=== PATIENT | female | born 1940 | race Caucasian/White ===

== ENCOUNTER → 2016-04-28 | Day surgery (SDC) | payer MEDICARE, OTHER ==
[~2016-04-28] MED LIST: BUPIVACAINE HCL PF 0.25% 30 ML VIAL ONE; KETOROLAC TROMETHAMINE 30 MG/ML (IVP) VIAL IV PUSH ONE; LACTATED RINGER'S 1000 ML INJ 1,000 ML ONE; MIDAZOLAM HCL 2 MG/2 ML VIAL ONE; ONDANSETRON HCL 4 MG/2 ML VIAL IV PUSH ONE; PROPOFOL 200 MG/20 ML AMP IV ONE; ceFAZolin 2 GM PREMIX 50 ML ONE
--- NOTE | 2016-04-28 20:00 | MP ---
cc: ELIJAH RUFFIN DPM DATE OF SURGERY: 04/28/2016. PREOPERATIVE DIAGNOSIS: Left foot bunion and second digit hammertoe with metatarsalgia. POSTOPERATIVE DIAGNOSIS: Left foot bunion and second digit hammertoe with metatarsalgia. OPERATIVE PROCEDURE PERFORMED: Left first metatarsal osteotomy with proximal phalanx osteotomy, double osteotomy second digit proximal interphalangeal joint fusion with second metatarsal osteotomies. SURGEON: Elijah Ruffin DPM SPECIMEN: None ESTIMATED BLOOD LOSS: Less than three mL. MATERIALS USED: x2 2.5 headless cannulated screws. x1 2.5 cannulated screw. x1 3.0 cannulated screw. These were all [employer]rol[employer] screws titanium [employer]. INJECTABLES: 30 mL of 0.25% Marcaine plain. COMPLICATIONS: None. ANESTHESIA: General with local. TOURNIQUET TIME: 77 minutes at a setting of 250 mmHg. PLAN OF ACTIVITY: Post-anesthesia care unit and then discharge home once stable per same day surgery criteria. JUSTIFICATION FOR THE PROCEDURE: 75-year-old female with worsening bunion pain, inability to wear shoe gear and ambulate without pain. She exhausted conservative options and failed. We opted to move forward with surgical intervention. No guarantees were given or implied regarding the outcome. DESCRIPTION OF THE PROCEDURE IN DETAIL: Under mild sedation, the patient was brought into the operating room and placed on the operating table in a supine position. Following the induction of LMA general anesthesia, local anesthesia was obtained about the forefoot utilizing a standard block fashion. The patient's foot was then scrubbed, prepped and draped in the usual aseptic fashion. The foot was elevated, exsanguinated and the previously placed mid-calf tourniquet was inflated to 215 mmHg. An incision was made over the dorsal aspect of the IPJ of the hallux along the dorsal aspect of the first MPJ through the mid shaft of the first metatarsal. Sharp and blunt dissection was carried down to the extensor hallucis longus tendon which was retracted medially and sharp and blunt dissection was carried down to the level of the conjoined tendon of the first MPJ which was severed freeing up lateral contractures. Next an L-shaped capsulotomy was performed freeing up any attachments to the dorsomedial eminence. This was then transected utilizing power instrumentation. There was noted to be good cartilage surface with minimal signs of arthritis. No obvious loose friable tissue noted. A McGlamry elevator was then introduced deep into the first MPJ freeing up all plantar contractures. Next an offset V osteotomy was performed displacing the capital fragment laterally 4 mm and fixating utilizing x2 [employer] screws. Next the prominent redundant bone was then transected. There still remained a distal deformity with hallux abductovalgus. At this time, a closing wedge José Miguel was performed of the proximal phalanx with the apex being proximal and the base of the triangle being distal medial. This then improved the contour of the proximal articular set angle and allowed for fixation with x2 headless screws. Absent bunion and a straight hallux with minimal hallux abductovalgus noted. The capsule was repaired utilizing Vicryl. . The skin was closed utilizing nylon. Next incision was made over the dorsal aspect of the second digit proximal interphalangeal joint, which was slightly curvilinear at the level of the second MPJ. Sharp and blunt dissection was carried down to the extensor digitorum longus tendon. An extensor tendon lengthening approach took place utilizing an incision of V tendon lengthening. Sharp and blunt dissection was carried down to level of the second MPJ and with that linear capsulotomy performed, the McGlamry elevator was introduced deep to the second MPJ freeing up to plantar contractures. Next a dorsal distal to plantar proximal osteotomy was performed of the second metatarsal displacing the second metatarsal head proximally 2 mm and fixated utilizing one screw utilizing proper A/O technique. The dorsal shelf was then transected allowing for ease of range of motion and articulation of the base of the proximal phalanx with a second metatarsal head. Next, sharp and blunt dissection was carried down to the level of the proximal interphalangeal joint. The articular surface was removed in the proximal phalanx head as well as the base of the middle phalanx. The wound was flushed with copious amounts of normal saline. A wire was then placed through the middle phalanx of the distal phalanx and retrograded back across the proximal phalanx anchoring just short of the second MPJ, securing the hammertoe arthrodesis. The tendon was then repaired at this time utilizing Vicryl. The skin was closed utilizing nylon. Upon relieving the tourniquet, there is a prompt hyperemic response to all digits without any delayed capillary fill time. Fluoroscopy was used showing excellent alignment of the foot after conclusion of the surgery. A bulky bandage placed. The patient was transferred from the operating room to the post-anesthesia care unit with all vital signs stable. The patient is heel weight-bear. She will ice and elevate. I will see the patient within three to five days. EWELINA Campos/TAMIKA /3:01 PM /7:46 PM MARBELLA
== END | disposition home or self-care (01) ==
LOC: ESDC 11:57
PROVIDERS: ATTEND Podiatrist Foot & Ankle Surgery
DX: M20.12 Hallux valgus (acquired), left foot (principal); M20.42 Other hammer toe(s) (acquired), left foot; M77.42 Metatarsalgia, left foot
CPT/HCPCS: 01480; 28285; 28299; 28308; 73620; 76000; C1713; J0690; J1885; J2250; J2405; J3010; J7120